=== PATIENT | female | born 1985 | race Caucasian/White ===

== ENCOUNTER 2021-11-02 11:48 | Emergency (ER) | payer SELFPAY ==
[~2021-11-02] VITALS: Ht 165.1 cm; Wt 72.0 kg
[2021-11-02] MEDS ORDERED: MORPHINE SULFATE 4 MG/ML CPJ (NOT FOR IM USE) IV STA (12:21)
[2021-11-02] MEDS ORDERED: ONDANSETRON HCL 4MG/2ML INJ IV STA (12:21)
[2021-11-02] MEDS ORDERED: SODIUM CHLORIDE 0.9% 1,000 ML IV ONE (12:30)
[2021-11-02 12:45] LABS: CLARITY URINE CLEAR (CLEAR); COLOR URINE YELLOW (YELLOW); KETONES URINE NEGATIVE (NEGATIVE); LEUKOCYTE ESTERASE URINE TRACE (NEGATIVE); NITRITE URINE NEGATIVE (NEGATIVE); OCCULT BLOOD URINE 2+ (NEGATIVE); PH URINE 8.5 (4.5-8.0); PROTEIN URINE NEGATIVE (NEGATIVE); SPECIFIC GRAVITY URINE 1.007 (1.005-1.030); UROBILINOGEN URINE 0.2 E.U./dL (0.2-1.0)
[2021-11-02] MEDS ORDERED: CYCL10TA7 MT (14:27)
[2021-11-02] MEDS ORDERED: IBUP-2028 MT (14:27)
[2021-11-02] MEDS ORDERED: CEPH500C2 MT (14:32)
[2021-11-02 14:35] VITALS: BP 121/66
== END 2021-11-02 14:42 | disposition home or self-care (01) ==
LOC: ER 11:48
DX: M54.40 Lumbago with sciatica, unspecified side (principal); N39.0 Urinary tract infection, site not specified
CPT/HCPCS: 81003; 81025; 96361; 96374; 96375; 99284; J2270; J2405; J7030